=== PATIENT | female | born 1945 | race Caucasian/White ===

== ENCOUNTER 2021-02-23 12:10 | Outpatient (CLI) | payer MEDICARE, MEDICAID | END 2021-02-23 12:11 | disposition home or self-care (01) | LOC: SCSRAD 12:10 | PROVIDERS: ATTEND Family Medicine | DX: M25.561 Pain in right knee (principal) ==

== ENCOUNTER 2021-11-13 15:28 | Outpatient (CLI) | payer MEDICARE, MEDICAID | END 2021-11-13 15:29 | disposition home or self-care (01) | LOC: RAD 15:28 | PROVIDERS: ATTEND Podiatrist | DX: E11.621 Type 2 diabetes mellitus with foot ulcer (principal); L97.529 Non-pressure chronic ulcer of other part of left foot with unspecified severity; M79.675 Pain in left toe(s); S91.105A Unspecified open wound of left lesser toe(s) without damage to nail, initial encounter ==

== ENCOUNTER 2022-06-24 21:46 | Inpatient (IN) | payer OTHER, MEDICAID ==
[2022-06-24] MEDS ORDERED: Propofol 1,000 MG/100 ML VIAL IV ONE (21:52)
[2022-06-24 22:48] LABS: Actual Bicarbonate (HCO3a) 24.6 mEq/L (22-28); Analyzer IN Cardio ER; Base Excess (BEa) 1.3 mEq/L (-2.0 to +3.0); CO2 Tension 34.6 mmHg (35.0-45.0); Calcium, Ionized (arterial) 1.14 mmol/L (1.12-1.30); Carboxyhemoglobin (COHb) 0.3 gm% (0.0-3.0); Hemoglobin (Hb) 12.7 g/dL (12.0-16.0); O2 Tension (PaO2), arterial 69.5 mmHg (> 70.0); Potassium - ABG Lab 3.68 mmol/L (3.70-5.30); pH, Arterial 7.47 (7.35-7.45)
[2022-06-24 22:49] LABS: Puncture Site RRA
[2022-06-24 23:06] LABS: PTT 25.9 sec (22.9-36.1); Prothrombin Time 13.1 sec (12.0-14.7)
[2022-06-24] MEDS ORDERED: Ondansetron PF 4 MG/2 ML Vial IVP PRN (23:45)
[2022-06-24] MEDS ORDERED: Ondansetron ODT 4 MG TAB SL PRN (23:45)
[2022-06-24] MEDS ORDERED: Sodium Chloride 0.9% 1,000 ML IV SCH (23:45)
[2022-06-25] MEDS ORDERED: Midazolam HCl 2 mg/2 ml Vial SLOW IVP PRN (01:26)
[2022-06-25] MEDS ORDERED: Morphine 4 MG/ML VIAL SLOW IVP PRN (01:30)
[2022-06-25] MEDS ORDERED: Ventilator Sedation Protocol 1 EACH FS SCH (01:30)
[2022-06-25] MEDS ORDERED: Fentanyl CADD 100 ML IV SCH (01:30)
[2022-06-25] MEDS ORDERED: Propofol BOLUS 1,000 MG/100 ML VIAL IV PRN (01:30)
[2022-06-25] MEDS ORDERED: Fentanyl BOLUS 250 ML IVPB PRN (01:30)
[2022-06-25] MEDS ORDERED: DISCONTINUE PREVIOUS NARCOTIC PAIN MEDICATIONS AND BENZODIAZEPINES FS SCH (01:30)
[2022-06-25] MEDS: Propofol 1,000 MG/100 ML VIAL IV PRN ×2 (01:31→04:31)
[2022-06-25] MEDS: hydrALAZINE 20 MG/ML VIAL SLOW IVP PRN ×3 (01:49→10:36)
[2022-06-25] MEDS: Labetalol HCl 100 MG/20 ML VIAL SLOW IVP PRN ×2 (02:16→03:17)
[2022-06-25] MEDS ORDERED: Dextrose 5% in Water 1,000 ML IV PRN (02:57)
[2022-06-25] MEDS ORDERED: Dextrose 50% Abboject 50 ML SYRINGE SLOW IVP PRN (02:57)
[2022-06-25 03:26] LABS: #Basophils 0.1 thou/uL (0.0-0.2); #Eosinphils 0.1 thou/uL (0.0-0.7); #Monocytes 1.8 thou/uL (0.11-0.59); #Neutrophils 10.7 thou/uL (1.40-6.50); %Basophils 0.3 % (0.0-1.0); %Eosinophils 0.6 % (0.0-10.0); %Monocytes 12.1 % (0.0-10.0); Hemoglobin 12.2 g/dL (12.0-16.0); Mean Corpuscular HGB CONC 31.7 g/dL (32.0-36.0); Mean Corpuscular Hemoglobin 30.6 pg (27.0-31.0); Mean Corpuscular Volume 96.8 fL (78.0-98.0); Mean Platelet Volume 10.5 fL (7.4-10.4); Platelet Count 193 thou/uL (130-400); RBC Distribution Width 12.6 % (11.5-14.5); Red Blood Cell (RBC) Count 3.98 mill/uL (4.20-5.40); White Blood Cell (WBC) Count 14.6 thou/uL (4.8-10.8)
[2022-06-25] MEDS: Acetaminophen 650 MG/20.3 ML UDCUP PER TUBE PRN (03:44)
[2022-06-25 03:47] LABS: Anion Gap 11 mmol/L (10-20); BUN (Urea Nitrogen) 21 mg/dL (9.8-20.1); Calc. Creatinine Clearance 81 mL/min (70-130); Calcium 8.8 mg/dL (7.8-10.44); Carbon Dioxide 25 mmol/L (23-31); Chloride 103 mmol/L (98-107); Estimated GFR 85; Potassium 3.4 mmol/L (3.5-5.1); Sodium 136 mmol/L (136-145)
[2022-06-25 03:49] LABS: Glucose 57 mg/dL (83-110)
[2022-06-25] MEDS ORDERED: Potassium Chloride 10 MEQ in Premix Bag 1 BAG IVPB SCH (04:30)
[2022-06-25 06:30] LABS: Magnesium 1.8 mg/dL (1.6-2.6)
[2022-06-25] MEDS ORDERED: Rocuronium Bromide 10 MG/ML (10ML VIAL) ONE (08:08)
[2022-06-25] MEDS ORDERED: Rocuronium Bromide 10 MG/ML (10ML VIAL) IVP SCH (08:15)
[2022-06-25] MEDS ORDERED: levETIRAcetam 500 MG/5 ML VIAL SLOW IVP SCH ×2 (09:00→11:45)
[2022-06-25] MEDS ORDERED: Famotidine 40 MG/5 ML Oral Suspension PER TUBE SCH (09:00)
[2022-06-25 09:23] VITALS: BMI 30.8
[2022-06-25] MEDS: Lansoprazole 3 MG/ML ORAL SUSPENSION PER TUBE SCH (10:13)
[2022-06-25] MEDS ORDERED: Magnevist 469MG/ML 20 ML VIAL ONE (10:17)
[2022-06-25] MEDS: D5 1/2 NS w/20 mEq KCL 1,000 ML IV SCH (10:37)
[2022-06-25] MEDS: levETIRAcetam 500 MG/5 ML VIAL SLOW IVP SCH (21:12)
[2022-06-26] MEDS: D5 1/2 NS w/20 mEq KCL 1,000 ML IV SCH ×2 (00:02→11:35)
[2022-06-26] MEDS ORDERED: Fentanyl 100 MCG/2 ML VIAL SLOW IVP SCH (02:15)
[2022-06-26 03:56] LABS: #Eosinphils 0.3 thou/uL (0.0-0.7); #Lymphocytes 1.4 thou/uL (1.20-3.40); #Monocytes 1.4 thou/uL (0.11-0.59); #Neutrophils 7.6 thou/uL (1.40-6.50); %Basophils 0.2 % (0.0-1.0); %Eosinophils 2.5 % (0.0-10.0); %Lymphocytes 12.9 % (21.0-51.0); %Monocytes 13.5 % (0.0-10.0); Hemoglobin 11.4 g/dL (12.0-16.0); Mean Corpuscular HGB CONC 31.8 g/dL (32.0-36.0); Mean Corpuscular Hemoglobin 30.2 pg (27.0-31.0); Mean Platelet Volume 10.9 fL (7.4-10.4); Platelet Count 175 thou/uL (130-400); RBC Distribution Width 12.8 % (11.5-14.5); Red Blood Cell (RBC) Count 3.78 mill/uL (4.20-5.40); White Blood Cell (WBC) Count 10.7 thou/uL (4.8-10.8)
[2022-06-26 04:13] LABS: Anion Gap 11 mmol/L (10-20); BUN (Urea Nitrogen) 13 mg/dL (9.8-20.1); Calc. Creatinine Clearance 78 mL/min (70-130); Calcium 8.4 mg/dL (7.8-10.44); Carbon Dioxide 24 mmol/L (23-31); Chloride 108 mmol/L (98-107); Estimated GFR 81; Glucose 82 mg/dL (83-110); Potassium 3.8 mmol/L (3.5-5.1); Sodium 139 mmol/L (136-145)
[2022-06-26] MEDS: levETIRAcetam 500 MG/5 ML VIAL SLOW IVP SCH (08:28)
[2022-06-26] MEDS: Lansoprazole 3 MG/ML ORAL SUSPENSION PER TUBE SCH (08:32)
[2022-06-26] MEDS ORDERED: cefTRIAXone Sodium 1,000 MG in Syringe 0 ML IVPB SCH (10:15)
[2022-06-26] MEDS: cefTRIAXone\\ROCEPHIN 1 GM in Sodium Chloride 0.9% 100 ML IVPB SCH (11:35)
[2022-06-26] MEDS: Acetaminophen 650 MG/20.3 ML UDCUP PER TUBE PRN (16:17)
[2022-06-26] MEDS ORDERED: Melatonin 3 MG TAB PO PRN (18:24)
[2022-06-26] MEDS ORDERED: traZODone HCl 50 MG TAB PO PRN (18:24)
[2022-06-26 19:25] LABS: Actual Bicarbonate (HCO3a) 25.3 mEq/L (22-28); Base Excess (BEa) -0.2 mEq/L (-2.0 to +3.0); CO2 Tension 44.8 mmHg (35.0-45.0); Calcium, Ionized (arterial) 1.16 mmol/L (1.12-1.30); Carboxyhemoglobin (COHb) 1.3 gm% (0.0-3.0); Hemoglobin (Hb) 12.3 g/dL (12.0-16.0); O2 Tension (PaO2), arterial 70.8 mmHg (> 70.0); Potassium - ABG Lab 4.06 mmol/L (3.70-5.30); pH, Arterial 7.37 (7.35-7.45)
[2022-06-26] MEDS ORDERED: levETIRAcetam 500 mg/5 ml Oral Solution PER TUBE SCH (21:00)
[2022-06-26] MEDS: Acetaminophen 650 MG/20.3 ML UDCUP PO PRN (22:26)
[2022-06-27] MEDS: D5 1/2 NS w/20 mEq KCL 1,000 ML IV SCH ×2 (01:38→17:53)
[2022-06-27 05:29] LABS: #Basophils 0.1 thou/uL (0.0-0.2); #Eosinphils 0.3 thou/uL (0.0-0.7); #Lymphocytes 1.3 thou/uL (1.20-3.40); #Monocytes 1.2 thou/uL (0.11-0.59); #Neutrophils 5.6 thou/uL (1.40-6.50); %Basophils 0.6 % (0.0-1.0); %Eosinophils 3.9 % (0.0-10.0); %Lymphocytes 15.7 % (21.0-51.0); %Monocytes 14.1 % (0.0-10.0); %Neutrophils 65.6 % (42.0-75.0); Hemoglobin 10.5 g/dL (12.0-16.0); Mean Corpuscular HGB CONC 32.2 g/dL (32.0-36.0); Mean Corpuscular Hemoglobin 30.9 pg (27.0-31.0); Mean Corpuscular Volume 96.1 fL (78.0-98.0); Mean Platelet Volume 10.7 fL (7.4-10.4); Platelet Count 161 thou/uL (130-400); RBC Distribution Width 12.7 % (11.5-14.5); White Blood Cell (WBC) Count 8.5 thou/uL (4.8-10.8)
[2022-06-27] MEDS: Acetaminophen 650 MG/20.3 ML UDCUP PO PRN ×2 (05:55→16:18)
[2022-06-27 06:35] LABS: Anion Gap 10 mmol/L (10-20); BUN (Urea Nitrogen) 12 mg/dL (9.8-20.1); Calc. Creatinine Clearance 76 mL/min (70-130); Calcium 8.7 mg/dL (7.8-10.44); Carbon Dioxide 25 mmol/L (23-31); Chloride 107 mmol/L (98-107); Estimated GFR 80; Glucose 253 mg/dL (83-110); Magnesium 2.1 mg/dL (1.6-2.6); Potassium 4.2 mmol/L (3.5-5.1); Sodium 138 mmol/L (136-145)
[2022-06-27] MEDS: levETIRAcetam 500 mg/5 ml Oral Solution PO SCH ×2 (09:09→21:58)
[2022-06-27] MEDS: cefTRIAXone\\ROCEPHIN 1 GM in Sodium Chloride 0.9% 100 ML IVPB SCH (11:29)
[2022-06-27] MEDS: Lansoprazole 3 MG/ML ORAL SUSPENSION PO SCH (12:02)
[2022-06-27] MEDS: Insulin Regular 300 UNITS/3 ML VIAL SC PRN ×3 (12:11→22:01)
[2022-06-28 05:41] LABS: #Eosinphils 0.3 thou/uL (0.0-0.7); #Lymphocytes 1.6 thou/uL (1.20-3.40); #Monocytes 1.2 thou/uL (0.11-0.59); #Neutrophils 5.7 thou/uL (1.40-6.50); %Basophils 0.5 % (0.0-1.0); %Eosinophils 3.3 % (0.0-10.0); %Lymphocytes 17.7 % (21.0-51.0); %Monocytes 13.3 % (0.0-10.0); %Neutrophils 65.3 % (42.0-75.0); Mean Corpuscular HGB CONC 32.4 g/dL (32.0-36.0); Mean Corpuscular Volume 95.6 fL (78.0-98.0); Mean Platelet Volume 10.6 fL (7.4-10.4); Platelet Count 170 thou/uL (130-400); RBC Distribution Width 12.5 % (11.5-14.5); Red Blood Cell (RBC) Count 3.54 mill/uL (4.20-5.40); White Blood Cell (WBC) Count 8.8 thou/uL (4.8-10.8)
[2022-06-28 06:19] LABS: Anion Gap 10 mmol/L (10-20); BUN (Urea Nitrogen) 14 mg/dL (9.8-20.1); Calc. Creatinine Clearance 82 mL/min (70-130); Carbon Dioxide 26 mmol/L (23-31); Chloride 106 mmol/L (98-107); Estimated GFR 86; Glucose 204 mg/dL (83-110); Magnesium 1.9 mg/dL (1.6-2.6); Potassium 3.9 mmol/L (3.5-5.1); Sodium 138 mmol/L (136-145)
[2022-06-28] MEDS: Acetaminophen 650 MG/20.3 ML UDCUP PO PRN (08:49)
[2022-06-28] MEDS: Lansoprazole 3 MG/ML ORAL SUSPENSION PO SCH (08:51)
[2022-06-28] MEDS: levETIRAcetam 500 mg/5 ml Oral Solution PO SCH ×2 (08:51→20:53)
[2022-06-28] MEDS ORDERED: FLU VACC QS2022-23(65YR UP)/PF 240 MCG/0.7 ML SYRINGE IM ONE (09:00)
[2022-06-28] MEDS: cefTRIAXone\\ROCEPHIN 1 GM in Sodium Chloride 0.9% 100 ML IVPB SCH (11:34)
[2022-06-28] MEDS: Insulin Regular 300 UNITS/3 ML VIAL SC PRN ×3 (12:06→20:58)
[2022-06-28] MEDS: Acetaminophen 325 MG TAB PO PRN (17:49)
[2022-06-28] MEDS: Carvedilol 6.25 MG TAB PO SCH (20:54)
[2022-06-28] MEDS: Pramipexole Di-HCl 1 MG TAB PO SCH (20:55)
[2022-06-28] MEDS ORDERED: Melatonin 3 MG TAB PO PRN (23:55)
[2022-06-29] MEDS: Acetaminophen 325 MG TAB PO PRN ×3 (00:08→21:24)
[2022-06-29] MEDS: hydrALAZINE 20 MG/ML VIAL SLOW IVP PRN (00:09)
[2022-06-29] MEDS: Insulin Regular 300 UNITS/3 ML VIAL SC PRN ×4 (06:05→21:02)
[2022-06-29 06:49] LABS: #Basophils 0.1 thou/uL (0.0-0.2); #Eosinphils 0.2 thou/uL (0.0-0.7); #Lymphocytes 1.4 thou/uL (1.20-3.40); %Basophils 0.6 % (0.0-1.0); %Eosinophils 2.6 % (0.0-10.0); %Lymphocytes 15.8 % (21.0-51.0); %Monocytes 11.5 % (0.0-10.0); %Neutrophils 69.6 % (42.0-75.0); Hemoglobin 10.7 g/dL (12.0-16.0); Mean Corpuscular Hemoglobin 30.5 pg (27.0-31.0); Mean Corpuscular Volume 95.2 fL (78.0-98.0); Mean Platelet Volume 10.7 fL (7.4-10.4); Platelet Count 180 thou/uL (130-400); RBC Distribution Width 12.4 % (11.5-14.5); Red Blood Cell (RBC) Count 3.51 mill/uL (4.20-5.40); White Blood Cell (WBC) Count 8.6 thou/uL (4.8-10.8)
[2022-06-29 07:04] LABS: Anion Gap 13 mmol/L (10-20); BUN (Urea Nitrogen) 19 mg/dL (9.8-20.1); Calc. Creatinine Clearance 82 mL/min (70-130); Calcium 9.4 mg/dL (7.8-10.44); Carbon Dioxide 26 mmol/L (23-31); Chloride 103 mmol/L (98-107); Estimated GFR 86; Glucose 237 mg/dL (83-110); Potassium 3.9 mmol/L (3.5-5.1); Sodium 138 mmol/L (136-145)
[2022-06-29] MEDS ORDERED: Atorvastatin Calcium 40 MG TAB PO SCH (09:00)
[2022-06-29] MEDS: levETIRAcetam 500 mg/5 ml Oral Solution PO SCH ×2 (09:47→21:03)
[2022-06-29] MEDS: Losartan 25 MG TAB PO SCH (10:20)
[2022-06-29] MEDS: PARoxetine 20 MG TAB PO SCH (10:20)
[2022-06-29] MEDS: Furosemide 40 MG TAB PO SCH (10:20)
[2022-06-29] MEDS: Carvedilol 6.25 MG TAB PO SCH ×2 (10:26→21:03)
[2022-06-29] MEDS: cefTRIAXone\\ROCEPHIN 1 GM in Sodium Chloride 0.9% 100 ML IVPB SCH (10:36)
[2022-06-29] MEDS: Pramipexole Di-HCl 1 MG TAB PO SCH (21:02)
[2022-06-30 05:43] LABS: #Eosinphils 0.2 thou/uL (0.0-0.7); #Lymphocytes 1.1 thou/uL (1.20-3.40); #Neutrophils 6.6 thou/uL (1.40-6.50); %Basophils 0.1 % (0.0-1.0); %Eosinophils 2.4 % (0.0-10.0); %Lymphocytes 12.1 % (21.0-51.0); %Monocytes 11.6 % (0.0-10.0); %Neutrophils 73.8 % (42.0-75.0); Hemoglobin 10.9 g/dL (12.0-16.0); Mean Corpuscular HGB CONC 32.4 g/dL (32.0-36.0); Mean Corpuscular Hemoglobin 30.8 pg (27.0-31.0); Mean Corpuscular Volume 94.8 fL (78.0-98.0); Mean Platelet Volume 10.1 fL (7.4-10.4); Platelet Count 192 thou/uL (130-400); RBC Distribution Width 12.4 % (11.5-14.5); Red Blood Cell (RBC) Count 3.53 mill/uL (4.20-5.40); White Blood Cell (WBC) Count 8.9 thou/uL (4.8-10.8)
[2022-06-30] MEDS: Insulin Regular 300 UNITS/3 ML VIAL SC PRN ×2 (06:27→20:56)
[2022-06-30 06:33] LABS: Anion Gap 12 mmol/L (10-20); BUN (Urea Nitrogen) 20 mg/dL (9.8-20.1); Calc. Creatinine Clearance 72 mL/min (70-130); Calcium 9.4 mg/dL (7.8-10.44); Carbon Dioxide 28 mmol/L (23-31); Estimated GFR 75; Glucose 286 mg/dL (83-110); Potassium 3.9 mmol/L (3.5-5.1); Sodium 136 mmol/L (136-145)
[2022-06-30 06:43] LABS: Chloride 100 mmol/L (98-107)
[2022-06-30] MEDS: Carvedilol 6.25 MG TAB PO SCH ×2 (09:57→20:58)
[2022-06-30] MEDS: Furosemide 40 MG TAB PO SCH (09:57)
[2022-06-30] MEDS: Losartan 25 MG TAB PO SCH (09:57)
[2022-06-30] MEDS: PARoxetine 20 MG TAB PO SCH (09:57)
[2022-06-30] MEDS: levETIRAcetam 500 mg/5 ml Oral Solution PO SCH ×2 (09:57→20:57)
[2022-06-30] MEDS: Acetaminophen 325 MG TAB PO PRN ×2 (10:16→21:14)
[2022-06-30] MEDS: cefTRIAXone\\ROCEPHIN 1 GM in Sodium Chloride 0.9% 100 ML IVPB SCH (12:12)
[2022-06-30] MEDS ORDERED: Atorvastatin Calcium 20 MG TAB PO SCH (21:00)
[2022-06-30] MEDS: Pramipexole Di-HCl 1 MG TAB PO SCH (22:44)
[2022-07-01 06:01] LABS: #Basophils 0.1 thou/uL (0.0-0.2); #Eosinphils 0.1 thou/uL (0.0-0.7); #Lymphocytes 1.4 thou/uL (1.20-3.40); #Neutrophils 4.6 thou/uL (1.40-6.50); %Basophils 0.8 % (0.0-1.0); %Eosinophils 1.9 % (0.0-10.0); %Lymphocytes 19.8 % (21.0-51.0); %Monocytes 13.5 % (0.0-10.0); Hemoglobin 11.2 g/dL (12.0-16.0); Mean Corpuscular HGB CONC 32.3 g/dL (32.0-36.0); Mean Corpuscular Hemoglobin 30.3 pg (27.0-31.0); Mean Corpuscular Volume 93.9 fL (78.0-98.0); Mean Platelet Volume 9.9 fL (7.4-10.4); Platelet Count 224 thou/uL (130-400); RBC Distribution Width 12.3 % (11.5-14.5); White Blood Cell (WBC) Count 7.1 thou/uL (4.8-10.8)
[2022-07-01 06:18] LABS: Anion Gap 11 mmol/L (10-20); BUN (Urea Nitrogen) 19 mg/dL (9.8-20.1); Calc. Creatinine Clearance 76 mL/min (70-130); Calcium 9.2 mg/dL (7.8-10.44); Carbon Dioxide 32 mmol/L (23-31); Chloride 98 mmol/L (98-107); Estimated GFR 80; Glucose 257 mg/dL (83-110); Potassium 3.8 mmol/L (3.5-5.1); Sodium 137 mmol/L (136-145)
[2022-07-01] MEDS: Insulin Regular 300 UNITS/3 ML VIAL SC PRN ×3 (06:42→16:58)
[2022-07-01] MEDS: Carvedilol 6.25 MG TAB PO SCH (09:01)
[2022-07-01] MEDS: PARoxetine 20 MG TAB PO SCH (09:01)
[2022-07-01] MEDS: Losartan 25 MG TAB PO SCH (09:01)
[2022-07-01] MEDS: levETIRAcetam 500 mg/5 ml Oral Solution PO SCH (09:01)
[2022-07-01] MEDS: Furosemide 40 MG TAB PO SCH (09:01)
[2022-07-01] MEDS: cefTRIAXone\\ROCEPHIN 1 GM in Sodium Chloride 0.9% 100 ML IVPB SCH (10:03)
[2022-07-01 15:35] VITALS: BP 135/59; TEMP 97.4
== END 2022-07-01 18:14 | disposition home health service (06) | DRG 82 ==
LOC: ERS 21:46 → CCU 23:33 → NEURO 06-26 13:37
PROVIDERS: ADMIT Internal Medicine; ATTEND Internal Medicine
PROC: 5A1935Z Respiratory Ventilation, Less than 24 Consecutive Hours (ICD-10-PCS; principal; 2022-06-24)
PROC: 0BH18EZ Insertion of Endotracheal Airway into Trachea, Via Natural or Artificial Opening Endoscopic (ICD-10-PCS; 2022-06-24)
PROC: 0D9670Z Drainage of Stomach with Drainage Device, Via Natural or Artificial Opening (ICD-10-PCS; 2022-06-24)
PROC: 4A10X4Z Monitoring of Central Nervous Electrical Activity, External Approach (ICD-10-PCS; 2022-06-25)
PROC: 4A10X4Z Monitoring of Central Nervous Electrical Activity, External Approach (ICD-10-PCS; 2022-06-25)
DX: S06.5X9A Traumatic subdural hemorrhage with loss of consciousness of unspecified duration, initial encounter (principal); J96.01 Acute respiratory failure with hypoxia; I13.0 Hypertensive heart and chronic kidney disease with heart failure and stage 1 through stage 4 chronic kidney disease, or unspecified chronic kidney disease; I50.32 Chronic diastolic (congestive) heart failure; N39.0 Urinary tract infection, site not specified; E78.5 Hyperlipidemia, unspecified; E11.22 Type 2 diabetes mellitus with diabetic chronic kidney disease; G40.909 Epilepsy, unspecified, not intractable, without status epilepticus; F41.9 Anxiety disorder, unspecified; E11.649 Type 2 diabetes mellitus with hypoglycemia without coma; D32.9 Benign neoplasm of meninges, unspecified; I25.10 Atherosclerotic heart disease of native coronary artery without angina pectoris; E11.51 Type 2 diabetes mellitus with diabetic peripheral angiopathy without gangrene; N18.9 Chronic kidney disease, unspecified; W19.XXXA Unspecified fall, initial encounter; Z90.49 Acquired absence of other specified parts of digestive tract; Z78.1 Physical restraint status; Z79.82 Long term (current) use of aspirin; Z79.4 Long term (current) use of insulin; Z95.5 Presence of coronary angioplasty implant and graft; Z79.899 Other long term (current) drug therapy; Y92.9 Unspecified place or not applicable
CPT/HCPCS: 31500; 36415; 36416; 36600; 70450; 70496; 70544; 70553; 71045; 80048; 82805; 83735; 85025; 85610; 85730; 87040; 94002; 94003; 95712; 95819; 95957; A9579; J0360; J0696; J1815; J1953; J2250; J2405; J2704; J3010; J3480; J3490; J7050

== ENCOUNTER 2023-06-25 10:40 | Inpatient (IN) | payer OTHER, MEDICAID ==
[~2023-06-25 10:40] MED LIST: Iopamidol-370 76% 500 ML MDV (1 ML CHARGE) ONE
[2023-06-25 11:18] LABS: #Basophils 0.1 thou/uL (0.0-0.2); #Eosinphils 0.2 thou/uL (0.0-0.7); #Monocytes 1.1 thou/uL (0.11-0.59); %Basophils 0.4 % (0.0-1.0); %Eosinophils 1.3 % (0.0-10.0); %Lymphocytes 12.9 % (21.0-51.0); %Monocytes 9.4 % (0.0-10.0); %Neutrophils 75.2 % (42.0-75.0); Hematocrit 36.7 % (36.0-47.0); Hemoglobin 11.9 g/dL (12.0-16.0); Mean Corpuscular HGB CONC 32.4 g/dL (32.0-36.0); Mean Corpuscular Hemoglobin 30.3 pg (27.0-31.0); Mean Corpuscular Volume 93.4 fl (78.0-98.0); Mean Platelet Volume 12.8 fL (7.4-10.4); Platelet Count 191 10x3/uL (130-400); RBC Distribution Width 13.5 % (11.5-14.5); Red Blood Cell (RBC) Count 3.93 mill/uL (4.20-5.40)
[2023-06-25 11:37] LABS: ALT (SGPT) 17 U/L (8-55); AST (SGOT) 14 U/L (5-34); Albumin 3.9 g/dL (3.4-4.8); Alkaline Phosphatase 79 U/L (40-110); Anion Gap 16 mmol/L (10-20); BUN (Urea Nitrogen) 53 mg/dL (9.8-20.1); Bilirubin, Total 0.7 mg/dL (0.2-1.2); Calc. Creatinine Clearance 0 mL/min (70-130); Calcium 8.8 mg/dL (7.8-10.44); Carbon Dioxide 22 mmol/L (23-31); Chloride 100 mmol/L (98-107); Estimated GFR 25; Globulin 2.5 g/dL (2.4-3.5); Glucose 245 mg/dL (83-110); Lipase 9 U/L (8-78); Potassium 3.9 mmol/L (3.5-5.1); Protein, Total 6.4 g/dL (5.8-8.1); Sodium 134 mmol/L (136-145)
[2023-06-25] MEDS ORDERED: cefTRIAXone (ROCEPHIN) 2 GM VIAL ONE ×2 (11:55→11:58)
[2023-06-25] MEDS ORDERED: NOREPINEPHRINE 8 MG/250 ML-D5W 250 ML ONE (13:33)
[2023-06-25 14:02] LABS: Bilirubin Negative (Negative); Blood, Urine Small (Negative); Glucose, Urine (Dipstick) >=1000 mg/dL (Negative); Ketone, Urine Negative (Negative); Leukocyte Negative (Negative); Nitrite Negative (Negative); Protein, Urine (Dipstick) Negative (Neg-Trace); Urobilinogen 0.2 mg/dL (Less than 2); pH, Urine 5.5 (5.0-9.0)
[2023-06-25 14:03] LABS: Clarity Clear (Clear)
[2023-06-25 14:16] LABS: Bacteria/HPF Rare-Few HPF (None Seen); CAUTI Indications for Culture Dysuria,urgency,freq; RBC/HPF 0-3 HPF (0-3); WBC/HPF None Seen HPF (0-3)
[2023-06-25 14:17] LABS: Urine Culture Reflex No No
[2023-06-25] MEDS ORDERED: Hydrocortisone Sod Succ/PF 100 mg/2 ml Vial IVP SCH (14:30)
[2023-06-25] MEDS ORDERED: Acetaminophen 325 MG TAB PO PRN (15:09)
[2023-06-25 15:11] LABS: Troponin I 0.026 ng/mL (< 0.028)
[2023-06-25] MEDS ORDERED: Dextrose 50% Abboject 50 ML SYRINGE SLOW IVP PRN (15:14)
[2023-06-25] MEDS ORDERED: Dextrose 5% in Water 1,000 ML IV PRN (15:14)
[2023-06-25] MEDS ORDERED: HumaLOG 300 UNITS/3 ML VIAL SC PRN (15:14)
[2023-06-25] MEDS ORDERED: Glucagon 1 MG/ML KIT IM PRN (15:14)
[2023-06-25 17:37] VITALS: BMI 33.5
[2023-06-25 18:03] LABS: Troponin I 0.034 ng/mL (< 0.028)
[2023-06-25] MEDS: Sodium Chloride 0.9% 1,000 ML IV SCH ×2 (18:24→22:56)
[2023-06-25] MEDS: Insulin Glargine 30 UNITS/0.3 ML VIAL SC SCH (20:37)
[2023-06-25] MEDS: Heparin 5,000 UNITS/ML VIAL SC SCH (20:37)
[2023-06-25] MEDS: Pramipexole Di-HCl 1 MG TAB PO SCH (20:40)
[2023-06-25] MEDS: levETIRAcetam 500 MG TAB PO SCH (20:40)
[2023-06-26 04:25] LABS: #Eosinphils 0.3 thou/uL (0.0-0.7); #Monocytes 0.9 thou/uL (0.11-0.59); #Neutrophils 5.2 thou/uL (1.40-6.50); %Basophils 0.5 % (0.0-1.0); %Eosinophils 4.1 % (0.0-10.0); %Lymphocytes 20.6 % (21.0-51.0); %Monocytes 11.1 % (0.0-10.0); %Neutrophils 63.3 % (42.0-75.0); Hematocrit 32.3 % (36.0-47.0); Hemoglobin 10.3 g/dL (12.0-16.0); Mean Corpuscular HGB CONC 31.9 g/dL (32.0-36.0); Mean Corpuscular Hemoglobin 30.1 pg (27.0-31.0); Mean Corpuscular Volume 94.4 fl (78.0-98.0); Mean Platelet Volume 12.9 fL (7.4-10.4); Platelet Count 152 10x3/uL (130-400); RBC Distribution Width 13.8 % (11.5-14.5); Red Blood Cell (RBC) Count 3.42 mill/uL (4.20-5.40); White Blood Cell (WBC) Count 8.2 10x3/uL (4.8-10.8)
[2023-06-26 04:55] LABS: Anion Gap 11 mmol/L (10-20); BUN (Urea Nitrogen) 36 mg/dL (9.8-20.1); Calc. Creatinine Clearance 55 mL/min (70-130); Calcium 7.7 mg/dL (7.8-10.44); Carbon Dioxide 22 mmol/L (23-31); Chloride 110 mmol/L (98-107); Estimated GFR 53; Glucose 147 mg/dL (83-110); Potassium 3.5 mmol/L (3.5-5.1); Sodium 139 mmol/L (136-145)
[2023-06-26] MEDS: Sodium Chloride 0.9% 1,000 ML IV SCH ×3 (06:41→18:19)
[2023-06-26] MEDS: Atorvastatin Calcium 20 MG TAB PO SCH (08:37)
[2023-06-26] MEDS: levETIRAcetam 500 MG TAB PO SCH ×2 (08:37→21:11)
[2023-06-26] MEDS: PARoxetine 20 MG TAB PO SCH (08:37)
[2023-06-26] MEDS: Insulin Glargine 30 UNITS/0.3 ML VIAL SC SCH ×2 (08:37→21:11)
[2023-06-26] MEDS: Heparin 5,000 UNITS/ML VIAL SC SCH ×3 (08:38→21:11)
[2023-06-26] MEDS ORDERED: Cefdinir 300 MG CAP PO SCH (09:00)
[2023-06-26] MEDS: Pramipexole Di-HCl 1 MG TAB PO SCH (21:31)
[2023-06-27] MEDS: Sodium Chloride 0.9% 1,000 ML IV SCH ×2 (00:14→06:17)
[2023-06-27] MEDS: Atorvastatin Calcium 20 MG TAB PO SCH (08:12)
[2023-06-27] MEDS: Heparin 5,000 UNITS/ML VIAL SC SCH (08:12)
[2023-06-27] MEDS: Insulin Glargine 30 UNITS/0.3 ML VIAL SC SCH (08:12)
[2023-06-27] MEDS: PARoxetine 20 MG TAB PO SCH (08:13)
[2023-06-27] MEDS: levETIRAcetam 500 MG TAB PO SCH (08:13)
[2023-06-27 12:15] VITALS: BP 110/67; TEMP 98.6
== END 2023-06-27 12:54 | disposition home or self-care (01) | DRG 315 ==
LOC: SUATTDRO 10:40 → ERS 10:40 → 2NO 14:30 → T4-B 06-26 10:34
PROVIDERS: ADMIT Family Medicine; ATTEND Hospitalist
DX: I95.9 Hypotension, unspecified (principal); I25.3 Aneurysm of heart; N17.9 Acute kidney failure, unspecified; F41.9 Anxiety disorder, unspecified; E78.5 Hyperlipidemia, unspecified; I11.0 Hypertensive heart disease with heart failure; I50.9 Heart failure, unspecified; E11.9 Type 2 diabetes mellitus without complications; I25.10 Atherosclerotic heart disease of native coronary artery without angina pectoris; F32.A Depression, unspecified; K21.9 Gastro-esophageal reflux disease without esophagitis; E86.0 Dehydration; Z98.890 Other specified postprocedural states; Z95.5 Presence of coronary angioplasty implant and graft; Z90.89 Acquired absence of other organs; Z79.4 Long term (current) use of insulin; Z79.899 Other long term (current) drug therapy; Z79.01 Long term (current) use of anticoagulants
CPT/HCPCS: 36415; 70450; 70486; 71045; 71260; 72125; 74177; 80048; 80053; 81001; 83605; 83690; 84443; 84484; 85025; 87040; 87086; 93005; 96361; 96365; 96375; J0696; J1644; J1815; J7050; Q9967

== ENCOUNTER 2023-08-05 14:23 | Inpatient (IN) | payer MEDICARE, OTHER ==
[2023-08-05] MEDS ORDERED: Atropine Sulfate 1 mg/10 ml Syringe ONE (15:13)
[2023-08-05 15:21] LABS: Hematocrit 43.3 % (36.0-47.0); Hemoglobin 13.4 g/dL (12.0-16.0); Mean Corpuscular HGB CONC 30.9 g/dL (32.0-36.0); Mean Corpuscular Hemoglobin 30.6 pg (27.0-31.0); Mean Corpuscular Volume 98.9 fl (78.0-98.0); Mean Platelet Volume 12.1 fL (7.4-10.4); Platelet Count 167 10x3/uL (130-400); RBC Distribution Width 15.1 % (11.5-14.5); Red Blood Cell (RBC) Count 4.38 mill/uL (4.20-5.40); White Blood Cell (WBC) Count 9.6 10x3/uL (4.8-10.8)
[2023-08-05 15:22] LABS: Delete Auto Diff?? YES; Manual Diff?? YES
[2023-08-05 15:34] LABS: Bacteria/HPF 2+ HPF (None Seen); Bilirubin Negative (Negative); Blood, Urine Negative (Negative); CAUTI Indications for Culture Dysuria,urgency,freq; Clarity Clear (Clear); Glucose, Urine (Dipstick) 200 mg/dL (Negative); Ketone, Urine Negative (Negative); Leukocyte 500 Leu/uL (Negative); Nitrite Negative (Negative); Protein, Urine (Dipstick) Negative (Neg-Trace); RBC/HPF 0-3 HPF (0-3); Specific Gravity, Urine 1.008 (1.002-1.036); Squamous Epithelial None Seen HPF (0-3); Urobilinogen Normal mg/dL (Less than 2); WBC/HPF Greater than 50 HPF (0-3)
[2023-08-05 15:35] LABS: Urine Culture Reflex Yes Yes
[2023-08-05 15:44] LABS: Sodium 139 mmol/L (136-145)
[2023-08-05 15:45] LABS: ALT (SGPT) 24 U/L (8-55); AST (SGOT) 24 U/L (5-34); Albumin 3.3 g/dL (3.4-4.8); Alkaline Phosphatase 75 U/L (40-110); Anion Gap 15 mmol/L (10-20); BUN (Urea Nitrogen) 41 mg/dL (9.8-20.1); Bilirubin, Total 0.5 mg/dL (0.2-1.2); Calc. Creatinine Clearance 0 mL/min (70-130); Carbon Dioxide 23 mmol/L (23-31); Chloride 104 mmol/L (98-107); Estimated GFR 57; Globulin 3.1 g/dL (2.4-3.5); Glucose 57 mg/dL (83-110); Protein, Total 6.4 g/dL (5.8-8.1)
[2023-08-05 15:48] LABS: Potassium 2.6 mmol/L (3.5-5.1)
[2023-08-05 16:11] LABS: Anisocytosis SLIGHT = 6-15 cells HPF (0-5); Band 14 % (5-11); Burr Cells SLIGHT = 2-5 cells HPF (0-1); CellaVision Operator ID LAB.MJL; Large Platelets 5.1 % (0-5); Lymphocytes 14 % (21-51); Monocytes 3 % (0-10); Neutrophil 67 % (42-75); Nucleated RBC (Manual Ct) 1 % (0); Ovalocytes SLIGHT = 2-5 cells HPF (0-1); Platelet Adequacy Comment Platelets Normal; Polychromasia SLIGHT = 2-3 cells HPF (0-2); Reactive Lymphocytes 2 % (0-10); Total Cell Count 99
[2023-08-05] MEDS ORDERED: Cefepime 2 GM VIAL ONE (16:29)
[2023-08-05] MEDS ORDERED: Vancomycin 1 GM/200 ML (FROZEN) BAG ONE (16:29)
[2023-08-05 16:36] LABS: Troponin I 0.026 ng/mL (< 0.028)
[2023-08-05] MEDS ORDERED: Acetaminophen 325 MG TAB PO PRN (17:22)
[2023-08-05] MEDS ORDERED: Potassium Chloride 40 MEQ in Premix 1 BAG IVPB SCH (17:45)
[2023-08-05 20:06] VITALS: BMI 33.5
[2023-08-05] MEDS: Potassium Chloride 20 MEQ in Premix 1 BAG IVPB SCH ×4 (20:10→23:41)
[2023-08-05] MEDS: Sodium Chloride 0.9% 1,000 ML IV SCH (20:11)
[2023-08-05 20:51] LABS: Free T4 (Free Thyroxine) 0.93 ng/dL (0.70-1.48)
[2023-08-05] MEDS: cefTRIAXone\\ROCEPHIN 1 GM in Sodium Chloride 0.9% 100 ML IVPB SCH (23:39)
[2023-08-06] MEDS ORDERED: Pramipexole Di-HCl 1 MG TAB PO SCH (03:45)
[2023-08-06 04:39] LABS: #Eosinphils 0.3 thou/uL (0.0-0.7); #Monocytes 0.8 thou/uL (0.11-0.59); #Neutrophils 6.4 thou/uL (1.40-6.50); %Basophils 0.4 % (0.0-1.0); %Lymphocytes 16.9 % (21.0-51.0); %Monocytes 8.7 % (0.0-10.0); %Neutrophils 70.7 % (42.0-75.0); Hematocrit 37.5 % (36.0-47.0); Hemoglobin 12.2 g/dL (12.0-16.0); Mean Corpuscular HGB CONC 32.5 g/dL (32.0-36.0); Mean Corpuscular Hemoglobin 29.9 pg (27.0-31.0); Mean Platelet Volume 12.4 fL (7.4-10.4); Platelet Count 174 10x3/uL (130-400); RBC Distribution Width 14.6 % (11.5-14.5); Red Blood Cell (RBC) Count 4.08 mill/uL (4.20-5.40); White Blood Cell (WBC) Count 9.1 10x3/uL (4.8-10.8)
[2023-08-06 04:42] LABS: Mean Corpuscular Volume 91.9 fl (78.0-98.0)
[2023-08-06 05:00] LABS: ALT (SGPT) 21 U/L (8-55); AST (SGOT) 21 U/L (5-34); Albumin 3.3 g/dL (3.4-4.8); Alkaline Phosphatase 82 U/L (40-110); Anion Gap 13 mmol/L (10-20); BUN (Urea Nitrogen) 34 mg/dL (9.8-20.1); Bilirubin, Total 0.3 mg/dL (0.2-1.2); Calc. Creatinine Clearance 65 mL/min (70-130); Calcium 8.8 mg/dL (7.8-10.44); Carbon Dioxide 21 mmol/L (23-31); Chloride 112 mmol/L (98-107); Estimated GFR 64; Globulin 2.7 g/dL (2.4-3.5); Glucose 94 mg/dL (83-110); Magnesium 1.9 mg/dL (1.6-2.6); Potassium 3.3 mmol/L (3.5-5.1); Sodium 143 mmol/L (136-145)
[2023-08-06] MEDS ORDERED: Magnesium 2 GM/50 ML(in water) 2 GM in Premix 1 BAG IVPB SCH (08:15)
[2023-08-06 08:56] LABS: Phosphorus 2.9 mg/dL (2.3-4.7)
[2023-08-06] MEDS ORDERED: Potassium Chloride 20 MEQ TAB PO SCH (09:00)
[2023-08-06] MEDS: Saccharomyces boulardii 250 MG CAP PO SCH (09:16)
[2023-08-06] MEDS: Sodium Chloride 0.9% 1,000 ML IV SCH (09:26)
[2023-08-06] MEDS ORDERED: Glucagon 1 MG/ML KIT IM PRN (09:34)
[2023-08-06] MEDS ORDERED: Dextrose 5% in Water 1,000 ML IV PRN (09:34)
[2023-08-06] MEDS ORDERED: HumaLOG 300 UNITS/3 ML VIAL SC PRN ×2 (09:34)
[2023-08-06] MEDS ORDERED: Dextrose 50% Abboject 50 ML SYRINGE SLOW IVP PRN (09:34)
[2023-08-06] MEDS ORDERED: Loperamide HCl 2 MG CAP PO PRN (11:02)
[2023-08-06] MEDS: Carvedilol 3.125 MG TAB PO SCH (17:30)
[2023-08-06] MEDS: Pramipexole Di-HCl 1 MG TAB PO SCH (20:13)
[2023-08-06] MEDS: levETIRAcetam 500 MG TAB PO SCH (20:13)
[2023-08-06] MEDS ORDERED: Senokot S 8.6-50 MG TAB PO SCH (21:00)
[2023-08-06] MEDS: cefTRIAXone\\ROCEPHIN 1 GM in Sodium Chloride 0.9% 100 ML IVPB SCH (22:07)
[2023-08-07] MEDS: Carvedilol 3.125 MG TAB PO SCH ×2 (08:29→16:24)
[2023-08-07] MEDS: levETIRAcetam 500 MG TAB PO SCH ×2 (08:30→21:13)
[2023-08-07] MEDS: BuPROPion XL 150 MG ER.TAB PO SCH (08:30)
[2023-08-07] MEDS: Losartan 25 MG TAB PO SCH (08:30)
[2023-08-07] MEDS: Saccharomyces boulardii 250 MG CAP PO SCH (08:31)
[2023-08-07 08:33] LABS: Anion Gap 9 mmol/L (10-20); BUN (Urea Nitrogen) 24 mg/dL (9.8-20.1); Calc. Creatinine Clearance 72 mL/min (70-130); Calcium 9.3 mg/dL (7.8-10.44); Carbon Dioxide 27 mmol/L (23-31); Chloride 111 mmol/L (98-107); Estimated GFR 72; Glucose 64 mg/dL (83-110); Magnesium 2.6 mg/dL (1.6-2.6); Potassium 4.2 mmol/L (3.5-5.1); Sodium 143 mmol/L (136-145)
[2023-08-07] MEDS ORDERED: PAROXETINE HCL 10 MG PO SCH (09:00)
[2023-08-07] MEDS: cefTRIAXone\\ROCEPHIN 1 GM in Sodium Chloride 0.9% 100 ML IVPB SCH (21:12)
[2023-08-07] MEDS: Pramipexole Di-HCl 1 MG TAB PO SCH (21:13)
[2023-08-08 04:39] LABS: #Basophils 0.1 thou/uL (0.0-0.2); #Eosinphils 0.3 thou/uL (0.0-0.7); #Neutrophils 3.3 thou/uL (1.40-6.50); %Basophils 0.7 % (0.0-1.0); %Eosinophils 4.8 % (0.0-10.0); %Lymphocytes 30.7 % (21.0-51.0); %Monocytes 15.1 % (0.0-10.0); %Neutrophils 48.4 % (42.0-75.0); Hematocrit 38.6 % (36.0-47.0); Hemoglobin 12.3 g/dL (12.0-16.0); Mean Corpuscular HGB CONC 31.9 g/dL (32.0-36.0); Mean Corpuscular Hemoglobin 30.2 pg (27.0-31.0); Mean Corpuscular Volume 94.8 fl (78.0-98.0); Mean Platelet Volume 12.6 fL (7.4-10.4); Platelet Count 159 10x3/uL (130-400); RBC Distribution Width 15.1 % (11.5-14.5); Red Blood Cell (RBC) Count 4.07 mill/uL (4.20-5.40); White Blood Cell (WBC) Count 6.8 10x3/uL (4.8-10.8)
[2023-08-08 05:05] LABS: Anion Gap 12 mmol/L (10-20); BUN (Urea Nitrogen) 28 mg/dL (9.8-20.1); Calc. Creatinine Clearance 68 mL/min (70-130); Calcium 9.2 mg/dL (7.8-10.44); Carbon Dioxide 26 mmol/L (23-31); Chloride 107 mmol/L (98-107); Estimated GFR 67; Glucose 207 mg/dL (83-110); Magnesium 2.3 mg/dL (1.6-2.6); Potassium 4.4 mmol/L (3.5-5.1); Sodium 141 mmol/L (136-145)
[2023-08-08 08:12] VITALS: BP 121/58; TEMP 97.4
[2023-08-08] MEDS: BuPROPion XL 150 MG ER.TAB PO SCH (08:18)
[2023-08-08] MEDS: Carvedilol 3.125 MG TAB PO SCH (08:18)
[2023-08-08] MEDS: levETIRAcetam 500 MG TAB PO SCH (08:18)
[2023-08-08] MEDS: Saccharomyces boulardii 250 MG CAP PO SCH (08:18)
[2023-08-08] MEDS: Losartan 25 MG TAB PO SCH (08:18)
== END 2023-08-08 13:06 | disposition home or self-care (01) | DRG 872 ==
LOC: ERS 14:23 → 2SW 16:43 → OBSVTOIN 17:20 → 2SW 19:14
PROVIDERS: ADMIT Internal Medicine; ATTEND Internal Medicine
DX: A41.9 Sepsis, unspecified organism (principal); N39.0 Urinary tract infection, site not specified; F41.9 Anxiety disorder, unspecified; E78.5 Hyperlipidemia, unspecified; I50.9 Heart failure, unspecified; E11.9 Type 2 diabetes mellitus without complications; I25.10 Atherosclerotic heart disease of native coronary artery without angina pectoris; I11.0 Hypertensive heart disease with heart failure; R00.1 Bradycardia, unspecified; T68.XXXA Hypothermia, initial encounter; E87.6 Hypokalemia; E83.42 Hypomagnesemia; E86.0 Dehydration; G25.81 Restless legs syndrome; K21.9 Gastro-esophageal reflux disease without esophagitis; G40.909 Epilepsy, unspecified, not intractable, without status epilepticus; R19.7 Diarrhea, unspecified; M16.11 Unilateral primary osteoarthritis, right hip; Z98.890 Other specified postprocedural states; Z90.49 Acquired absence of other specified parts of digestive tract; Z95.5 Presence of coronary angioplasty implant and graft; Z79.899 Other long term (current) drug therapy; Z79.4 Long term (current) use of insulin
CPT/HCPCS: 36415; 36416; 71045; 80048; 80053; 81001; 83605; 83735; 84100; 84439; 84443; 84481; 84484; 85025; 87040; 87086; 93005; 96365; 96375; J0461; J0692; J0696; J1650; J3370-JW; J3475; J3480; J3490; J7050